=== PATIENT | male | born 1975 | race Caucasian/White ===

== ENCOUNTER 2024-06-07 10:23 | Inpatient (IN) | payer OTHER ==
[~2024-06-07] VITALS: Ht 172.7 cm; Wt 102.7 kg
[2024-06-07 10:55] LABS: BASOPHILS # (AUTO) 0.1 K/uL (0.0-0.2); EOSINOPHILS # (AUTO) 0.3 K/uL (0.0-0.7); EOSINOPHILS % (AUTO) 3.5 % (0.0-6.0); HEMATOCRIT 24 % (39-51); HEMOGLOBIN 8.2 g/dL (13.5-17.5); LYMPHOCYTES # (AUTO) 1.4 K/uL (0.8-4.8); LYMPHOCYTES % (AUTO) 19.3 % (20.0-44.0); MEAN CORPUSCULAR HEMOGLOBIN 31 PG (26.0-33.0); MEAN CORPUSCULAR HGB CONC 34 g/dl (31.0-36.0); MEAN CORPUSCULAR VOLUME 92 fL (80-96); MONOCYTES # (AUTO) 0.6 K/uL (0.1-1.30); MONOCYTES % (AUTO) 8.1 % (2.0-12.0); NEUTROPHILS % (AUTO) 68.1 % (43.0-81.0); PLATELET COUNT (AUTO) 465 K/uL (150-450); RED BLOOD CELL COUNT(AUTO) 2.64 MIL/uL (4.5-6.0); WHITE BLOOD COUNT (AUTO) 7.3 K/uL (4.3-11.0)
[2024-06-07 11:02] LABS: CREATININE 7.5 mg/dL (0.6-1.3); POTASSIUM 4.9 mmol/L (3.5-5.1)
[2024-06-07] MEDS ORDERED: EPOE1VIA7 IJ (11:08)
[2024-06-07] MEDS ORDERED: DICY20TA11 PO (11:08)
[2024-06-07] MEDS ORDERED: NYST500P2 TP (11:08)
[2024-06-07] MEDS ORDERED: WARF-58 PO (11:08)
[2024-06-07] MEDS ORDERED: HYDR-4303 PO (11:08)
[2024-06-07] MEDS ORDERED: PANT40TA2 PO (11:08)
[2024-06-07] MEDS ORDERED: TAMS-12 PO (11:08)
[2024-06-07] MEDS ORDERED: MELA5TAB PO (11:08)
[2024-06-07] MEDS ORDERED: HYDR100T27 PO (11:08)
[2024-06-07] MEDS ORDERED: CALC667T8 PO (11:08)
[2024-06-07] MEDS ORDERED: ACET-868 PO (11:08)
[2024-06-07] MEDS ORDERED: BISA10SU11 RC (11:08)
[2024-06-07] MEDS ORDERED: CLOP75TA15 PO (11:08)
[2024-06-07 11:09] LABS: CALCIUM, SERUM 9.3 mg/dL (8.5-10.1)
[2024-06-07] MEDS ORDERED: ACETAMINOPHEN 325 MG TABLET PO PRN (12:30)
[2024-06-07] MEDS ORDERED: Z GUARD REMEDY 4 OZ OINT TP PRN (12:30)
[2024-06-07] MEDS ORDERED: ONDANSETRON HCL/PF 4 MG/2 ML VIAL ONE (12:45)
[2024-06-07] MEDS ORDERED: MORPHINE SULFATE INJ 4 MG/ML DISP.SYRIN ONE ×2 (12:45→14:59)
[2024-06-07] MEDS: MORPHINE SULFATE INJ 2 MG/ML DISP.SYRIN IV ONE (12:51)
[2024-06-07] MEDS: ONDANSETRON HCL/PF 4 MG/2 ML VIAL IVP ONE (12:52)
[2024-06-07] MEDS: MORPHINE SULFATE INJ 4 MG/ML DISP.SYRIN IV ONE (15:00)
[2024-06-07 20:00] VITALS: BP 158/96; TEMP 98.5; O2SAT 97
[2024-06-07] MEDS: ZOLPIDEM TARTRATE 5 MG TABLET PO PRN (22:45)
[2024-06-08] VITALS: BP 143/93; TEMP 98.4; O2SAT 98
[2024-06-08 04:00] VITALS: BP 143/85; TEMP 98.3; O2SAT 98
[2024-06-08 06:37] LABS: BASOPHILS # (AUTO) 0.1 K/uL (0.0-0.2); BASOPHILS % (AUTO) 1.3 % (0.0-2.0); EOSINOPHILS # (AUTO) 0.3 K/uL (0.0-0.7); EOSINOPHILS % (AUTO) 3.9 % (0.0-6.0); HEMATOCRIT 24 % (39-51); HEMOGLOBIN 8.1 g/dL (13.5-17.5); LYMPHOCYTES # (AUTO) 1.8 K/uL (0.8-4.8); LYMPHOCYTES % (AUTO) 26.5 % (20.0-44.0); MEAN CORPUSCULAR HEMOGLOBIN 31 PG (26.0-33.0); MEAN CORPUSCULAR HGB CONC 34 g/dl (31.0-36.0); MEAN CORPUSCULAR VOLUME 91 fL (80-96); MONOCYTES # (AUTO) 0.7 K/uL (0.1-1.30); MONOCYTES % (AUTO) 10.3 % (2.0-12.0); PLATELET COUNT (AUTO) 431 K/uL (150-450); RED CELL DISTRIBUTION WIDTH 13.4 % (11.5-15.0); WHITE BLOOD COUNT (AUTO) 6.9 K/uL (4.3-11.0)
[2024-06-08 07:18] LABS: CALCIUM, SERUM 9.7 mg/dL (8.5-10.1); MAGNESIUM 3.5 mg/dL (1.8-2.4); POTASSIUM 4.6 mmol/L (3.5-5.1)
[2024-06-08 07:22] LABS: CREATININE 7.7 mg/dL (0.6-1.3); PHOSPHORUS 8.5 mg/dL (2.5-4.9)
[2024-06-08 08:30] VITALS: BP 162/91; TEMP 98.6; O2SAT 98
[2024-06-08] MEDS: hydrALAZINE HCL 50 MG TABLET PO SCH (09:59)
[2024-06-08] MEDS ORDERED: ACETAMINOPHEN 325 MG TABLET PO PRN (10:00)
[2024-06-08] MEDS ORDERED: Medication Not On Formulary EA (Melatonin 10 MG) PO PRN (10:00)
[2024-06-08] MEDS: CLOPIDOGREL BISULFATE 75 MG TABLET PO SCH (10:25)
[2024-06-08] MEDS: PANTOPRAZOLE 40 MG TABLET.DR PO SCH (10:25)
[2024-06-08] MEDS: HYDROCODONE/APAP 5/325MG TABLET PO PRN (10:38)
[2024-06-08 12:01] LABS: INR 1.45 (0.91-1.10)
[2024-06-08] MEDS: CALCIUM ACETATE 667 MG CAP/TAB PO SCH (12:36)
[2024-06-08] MEDS: DICYCLOMINE HCL 10 MG CAPSULE PO SCH (12:37)
[2024-06-08 13:30] VITALS: BP 157/89; TEMP 98.4; O2SAT 96
[2024-06-08] MEDS: WARFARIN SODIUM 5 MG TABLET PO SCH (13:30)
[2024-06-08 16:00] VITALS: BP 153/90; TEMP 98.4; O2SAT 97
[2024-06-08] MEDS: TAMSULOSIN 0.4 MG CAP.SR.24H PO SCH (16:54)
[2024-06-08] MEDS: NYSTATIN TOP POWDER 15 GM BOTTLE TP SCH (17:06)
[2024-06-08 20:00] VITALS: BP 142/87; TEMP 98.4; O2SAT 99
[2024-06-08] MEDS ORDERED: BISACODYL SUPP (10 MG) 10 MG/SUPP.RECT SUPP.RECT RC PRN (22:00)
[2024-06-09] VITALS: BP 131/72; TEMP 98.5; O2SAT 96
[2024-06-09 04:00] VITALS: BP 121/81; TEMP 98.6; O2SAT 98
[2024-06-09] MEDS: EPOETIN ALFA (10,000 UNIT) 10,000 UNIT/ML VIAL IJ SCH (16:22)
[2024-06-09] MEDS: CLOTRIMAZOLE 1% 15 GM TUBE TP SCH (18:14)
[2024-06-09 20:00] VITALS: BP 157/88; TEMP 98.8; O2SAT 100
[2024-06-09] MEDS: ONDANSETRON HCL/PF 4 MG/2 ML VIAL IVP PRN (20:16)
[2024-06-09 20:33] VITALS: BP 157/88; TEMP 98.8; O2SAT 100
[2024-06-10 07:00] VITALS: BP 139/83; TEMP 98.4; O2SAT 100
[2024-06-10 07:12] LABS: HEPATITIS B SURFACE AB Non Reactive (.)
[2024-06-10 09:31] LABS: INR 1.95 (0.91-1.10); PROTHROMBIN TIME 19.8 SECS (9.2-11.1)
[2024-06-10] MEDS ORDERED: DEXTROSE 50%-WATER 50 ML DISP.SYRIN IV PRN (10:00)
[2024-06-10] MEDS: BLOOD SUGAR DIAGNOSTIC 1 EACH STRIP IN SCH (11:22)
[2024-06-10] MEDS: INSULIN REGULAR, HUMAN 100 UNIT/ML 3 ML VIAL SQ PRN (11:24)
[2024-06-10 16:38] VITALS: BP 147/84
== END 2024-06-10 17:48 | DRG 425 ==
LOC: ER 10:26 → TELE 15:44
PROVIDERS: ADMIT Internal Medicine; ATTEND Nurse Practitioner Family
PROC: 5A1D70Z Performance of Urinary Filtration, Intermittent, Less than 6 Hours Per Day (ICD-10-PCS; principal; 2024-06-08)
DX: E87.70 Fluid overload, unspecified (principal); I12.0 Hypertensive chronic kidney disease with stage 5 chronic kidney disease or end stage renal disease; N18.6 End stage renal disease; E11.22 Type 2 diabetes mellitus with diabetic chronic kidney disease; D63.8 Anemia in other chronic diseases classified elsewhere; E83.41 Hypermagnesemia; E87.1 Hypo-osmolality and hyponatremia; S81.812A Laceration without foreign body, left lower leg, initial encounter; I25.10 Atherosclerotic heart disease of native coronary artery without angina pectoris; M89.8X9 Other specified disorders of bone, unspecified site; Z99.2 Dependence on renal dialysis; E11.51 Type 2 diabetes mellitus with diabetic peripheral angiopathy without gangrene; E11.65 Type 2 diabetes mellitus with hyperglycemia; Z79.01 Long term (current) use of anticoagulants; Z79.02 Long term (current) use of antithrombotics/antiplatelets; Z79.899 Other long term (current) drug therapy; Z98.890 Other specified postprocedural states; E66.9 Obesity, unspecified; Z68.34 Body mass index [BMI] 34.0-34.9, adult; N40.0 Benign prostatic hyperplasia without lower urinary tract symptoms
CPT/HCPCS: 36415; 71045-TC; 80048-TC; 82962-TC; 83735-TC; 84100-TC; 85025-TC; 85610-TC; 85730-TC; 86706; 87340; 90935-TC; A6253; A6403; G0378; J0885; J1815; J2270; J2405; J7030

== ENCOUNTER 2024-06-14 00:27 | Emergency (ER) | payer OTHER ==
[~2024-06-14] VITALS: Ht 170.2 cm; Wt 95.3 kg
[~2024-06-14 00:27] MED LIST: ACET-868 PO; BISA10SU11 RC; CALC667T8 PO; CLOP75TA15 PO; DICY20TA11 PO; EPOE1VIA7 IJ; HYDR-4303 PO; HYDR100T27 PO; MELA5TAB PO; NYST500P2 TP; PANT40TA2 PO; TAMS-12 PO; WARF-58 PO
[2024-06-14 00:51] VITALS: BP 110/84; TEMP 98.6; O2SAT 99
[2024-06-14 01:12] LABS: BASOPHILS # (AUTO) 0.1 K/uL (0.0-0.2); BASOPHILS % (AUTO) 1.4 % (0.0-2.0); EOSINOPHILS # (AUTO) 0.4 K/uL (0.0-0.7); EOSINOPHILS % (AUTO) 5.9 % (0.0-6.0); HEMATOCRIT 25 % (39-51); HEMOGLOBIN 8.6 g/dL (13.5-17.5); LYMPHOCYTES # (AUTO) 2.3 K/uL (0.8-4.8); LYMPHOCYTES % (AUTO) 33.3 % (20.0-44.0); MEAN CORPUSCULAR HEMOGLOBIN 31 PG (26.0-33.0); MEAN CORPUSCULAR HGB CONC 34 g/dl (31.0-36.0); MEAN CORPUSCULAR VOLUME 91 fL (80-96); MONOCYTES # (AUTO) 0.8 K/uL (0.1-1.30); MONOCYTES % (AUTO) 11.5 % (2.0-12.0); NEUTROPHILS # (AUTO) 3.3 K/uL (1.8-8.9); NEUTROPHILS % (AUTO) 47.9 % (43.0-81.0); PLATELET COUNT (AUTO) 256 K/uL (150-450); RED BLOOD CELL COUNT(AUTO) 2.78 MIL/uL (4.5-6.0); RED CELL DISTRIBUTION WIDTH 13.2 % (11.5-15.0); WHITE BLOOD COUNT (AUTO) 6.8 K/uL (4.3-11.0)
[2024-06-14 01:24] LABS: INR 2.45 (0.91-1.10); PARTIAL THROMBOPLASTIN TIME 34.3 SEC (24.3-34.3); PROTHROMBIN TIME 24.5 SECS (9.2-11.1)
== END 2024-06-14 03:23 | disposition home or self-care (01) ==
LOC: ER 00:32
DX: R04.0 Epistaxis (principal); I12.0 Hypertensive chronic kidney disease with stage 5 chronic kidney disease or end stage renal disease; E11.22 Type 2 diabetes mellitus with diabetic chronic kidney disease; E11.51 Type 2 diabetes mellitus with diabetic peripheral angiopathy without gangrene; N18.6 End stage renal disease; D63.1 Anemia in chronic kidney disease; Z79.01 Long term (current) use of anticoagulants; Z79.02 Long term (current) use of antithrombotics/antiplatelets; Z79.899 Other long term (current) drug therapy; Z99.2 Dependence on renal dialysis
CPT/HCPCS: 36415; 85025-TC; 85730-TC